=== PATIENT | female | born 1950 | race Caucasian/White ===

== ENCOUNTER → 2016-06-26 08:31 | Outpatient (CLI) | payer MEDICARE, OTHER ==
[2010-10-02 06:05] VITALS: BMI 27.5
== END | disposition home or self-care (01) ==
LOC: D.US 08:31
DX: R10.11 Right upper quadrant pain (principal); R16.0 Hepatomegaly, not elsewhere classified

== ENCOUNTER → 2016-07-17 17:06 | Outpatient (CLI) | payer MEDICARE, OTHER ==
[2010-10-02 06:05] VITALS: BMI 27.5
== END | disposition home or self-care (01) ==
LOC: D.MAMMO 15:45
DX: Z12.31 Encounter for screening mammogram for malignant neoplasm of breast (principal)

== ENCOUNTER → 2016-09-02 16:43 | Outpatient (CLI) | payer MEDICARE, OTHER ==
[2010-10-02 06:05] VITALS: BMI 27.5
== END | disposition home or self-care (01) ==
LOC: D.MAMMO 14:30
DX: R92.8 Other abnormal and inconclusive findings on diagnostic imaging of breast (principal)

== ENCOUNTER → 2016-09-20 16:55 | Outpatient (CLI) | payer MEDICARE, OTHER ==
[2010-10-02 06:05] VITALS: BMI 27.5
== END | disposition home or self-care (01) ==
LOC: D.MAMMO 09-13 13:00
DX: R92.1 Mammographic calcification found on diagnostic imaging of breast (principal)

== ENCOUNTER → 2017-09-30 05:40 | Outpatient (CLI) | payer MEDICARE, OTHER ==
[2010-10-02 06:05] VITALS: BMI 27.5
== END | disposition home or self-care (01) ==
LOC: D.MAMMO 09-29 10:00
DX: Z12.31 Encounter for screening mammogram for malignant neoplasm of breast (principal)

== ENCOUNTER 2017-12-24 06:00 | Day surgery (SDC) | payer MEDICARE, OTHER ==
[2017-12-23 15:59] LABS: HEMATOCRIT 41.5 % (36.0-48.0); HEMOGLOBIN 13.6 g/dL (12-16); MCH 29.8 pg (26.0-34.0); MCHC 32.8 g/dL (31.0-37.0); MCV 90.8 fL (80.0-100.0); MEAN PLATELET VOLUME 10.2 fL (7.4-10.4); RBC 4.57 10x6/uL (4.00-5.40); RDW 13.9 % (11.5-14.5); WBC 10.5 10x3/uL (4.8-10.8)
[2017-12-23 16:29] LABS: CALC OSMOLALITY 281 mosm/kg (275-300); CALCIUM 9.3 mg/dL (8.5-10.1); CARBON DIOXIDE 30.5 mmol/L (21.0-32.0); CHLORIDE - SERUM 102 mmol/L (98-107); CREATININE - SERUM 0.7 mg/dL (0.6-1.3); GLUCOSE 98 mg/dL (74-106); POTASSIUM - SERUM 4.1 mmol/L (3.5-5.1); SODIUM 142 mmol/L (136-145); UREA NITROGEN 10 mg/dL (7-18); eGFR NON AFRICAN AMERICAN 88 mL/min (90-120)
[~2017-12-24] VITALS: Ht 162.6 cm; Wt 79.8 kg
--- NOTE | ~2017-12-24 | OP ---
PATIENT NAME: CYNDI STAUFFER MEDICAL RECORD: [id number] :50 LOCATION:D.[facility] ADMISSION DATE: SURGEON: MARIKA VILLATORO DPM DATE OF OPERATION: 12/24/2017 PREOPERATIVE DIAGNOSES: 1. Painful hardware, left first metatarsophalangeal joint. 2. Malunion, left first metatarsophalangeal joint. POSTOPERATIVE DIAGNOSES: 1. Painful hardware, left first metatarsophalangeal joint. 2. Malunion, left first metatarsophalangeal joint. PROCEDURES: 1. Removal of hardware, left first MPJ. 2. Fusion of left first MPJ. ANESTHESIA: General with local infiltrate utilizing lidocaine and Marcaine plain, approximately 15 cc total around the first ray of the left foot. HEMOSTASIS: Left ankle tourniquet at 250 mmHg. PREOPERATIVE DETAILS: The patient was taken to the OR and placed on the operating table in a supine position followed by induction of general anesthesia and infiltration of local anesthetic. The left extremity was then prepped and draped in the usual aseptic technique followed by exsanguination of extremity and inflation of tourniquet. A 15 blade was used to create a 5 to 6 cm linear incision over the dorsal medial aspect of the left first metatarsal, down to the base of the proximal phalanx. The incision was deepened down through the subcutaneous tissue. The plate was visualized and removed from the surgical site. PROCEDURE #2: Fusion of left first MPJ. Utilizing the incision as described above, the malunion was resected with a bone saw. Proper placement of the first MPJ was achieved with a temporary fixation. A 5-hole plate with 1-hole crossing the fusion site was placed with excellent rigid internal fixation and verified with the C-arm. The wound was flushed. The capsule was repaired with 2-0 Vicryl, the subcutaneous tissue with 4-0 Rapide and the skin was closed with 4-0 Rapide in a subcuticular technique followed by Dermabond. Adaptic, 4 x 4 and Conform were used to dress the wound followed by application of a modified Xavier compression dressing. Tourniquet was deflated. POSTOPERATIVE DETAILS: The patient tolerated the procedure well and left the OR with vital signs stable and vascular status at preoperative levels. The patient was transferred to recovery per anesthesia in stable condition. 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
[~2017-12-24 06:00] MED LIST: GLIMEPIRIDE2 MG PO; GLUCOPHAGE500 MG PO; LIPITOR20 MG PO; LISINOPRIL10 MG PO; ULTRAM50 MG PO
[2017-12-24 07:27] VITALS: BP 126/87; Ht 162.6 cm; Wt 79.8 kg
== END 2017-12-24 11:15 | disposition home or self-care (01) ==
LOC: D.OPS 06:00 → D.PAN 08:15 → D.OPS 11:15
PROVIDERS: Anesthesiology
DX: T84.84XA Pain due to internal orthopedic prosthetic devices, implants and grafts, initial encounter (principal); S93.122A Dislocation of metatarsophalangeal joint of left great toe, initial encounter; X58.XXXA Exposure to other specified factors, initial encounter; Z01.812 Encounter for preprocedural laboratory examination

== ENCOUNTER 2018-06-01 11:06 | Day surgery (SDC) | payer MEDICARE, OTHER ==
[~2018-06-01] VITALS: Ht 162.6 cm; Wt 79.5 kg
[2018-06-01 11:41] LABS: BASOPHILS 0.4 % (0-2); EOSINOPHILS 0.8 % (0-7); HEMATOCRIT 42.4 % (36.0-48.0); HEMOGLOBIN 13.8 g/dL (12-16); IMMATURE GRANULOCYTES 0.1 % (0-5); LYMPHOCYTES 36.1 % (15-50); MCH 29.2 pg (26.0-34.0); MCHC 32.5 g/dL (31.0-37.0); MCV 89.6 fL (80.0-100.0); MEAN PLATELET VOLUME 10.2 fL (7.4-10.4); MONOCYTES 6.8 % (2-11); NEUTROPHILS 55.8 % (40-80); PLATELET COUNT 281 10x3/uL (130-400); RBC 4.73 10x6/uL (4.00-5.40); RDW 13.7 % (11.5-14.5); WBC 7.6 10x3/uL (4.8-10.8)
[2018-06-01 11:49] LABS: CALC OSMOLALITY 282 mosm/kg (275-300); CALCIUM 10.1 mg/dL (8.5-10.1); CARBON DIOXIDE 30.2 mmol/L (21.0-32.0); CHLORIDE - SERUM 101 mmol/L (98-107); CREATININE - SERUM 0.8 mg/dL (0.6-1.3); GLUCOSE 130 mg/dL (74-106); POTASSIUM - SERUM 4.1 mmol/L (3.5-5.1); SODIUM 142 mmol/L (136-145); UREA NITROGEN 8 mg/dL (7-18); eGFR NON AFRICAN AMERICAN 75 mL/min (90-120)
[2018-06-01 13:25] VITALS: BP 108/80; Ht 162.6 cm; Wt 79.5 kg
--- NOTE | 2018-06-01 13:29 | NUR ---
IV STARTED WITH 20G RIGHT HAND, TOLERATED WELL
--- NOTE | 2018-06-01 15:30 | NUR ---
1526 IV DC'D. CATHETER INTACT. BLEEDING AT SITE. PRESSURE HELD FOR 3 MINUTES. NO BLEEDING AT SITE. AREA WAS A LITTLE SWOLLEN AT CATHETER SITE BUT NOT RED OR INFLAMMED. BANDAID APPLIED.
--- NOTE | 2018-06-03 13:50 | OP ---
PATIENT NAME: CYNDI STAUFFER MEDICAL RECORD: [id number] :50 LOCATION:[facility] ADMISSION DATE: SURGEON: LILI CARTER DO DATE OF OPERATION: 06/01/2018 PROCEDURE: Colonoscopy with polypectomy. INDICATIONS FOR PROCEDURE: Stool DNA based colorectal cancer screening positive. SCOPE: The [employer] video pediatric colonoscope. MEDICATIONS: Propofol 450 mg IV per anesthesia. WITHDRAWAL TIME: 9 minutes. ESTIMATED BLOOD LOSS: Minimal. COMPLICATIONS: None. FINDINGS: Informed consent was given. The patient was made comfortable with the above medication. After reaching an adequate level of sedation by slow IV push, the patient was placed on her left side. A digital rectal examination was performed and was normal. The endoscope was then advanced under direct visualization through the rectum to the cecum, confirmed by the presence of the appendiceal orifice and ileocecal valve. The endoscope was slowly withdrawn and mucosa was carefully examined. The prep quality was good. There was evidence of moderate diverticulosis involving the descending and sigmoid colon as well as the cecum. There was no evidence of diverticulitis. There were 5 polyps visualized in total on today's examination. One was located in the transverse colon. It was benign appearing sessile polyp, which measured approximately 3 mm in diameter. It was removed using a hot forceps. In the descending colon, there was 1 polyp which was benign appearing and sessile. It measured approximately 4-5 mm in diameter and was removed using hot snare. In the sigmoid colon, there were 3 separate polyps, which were benign-appearing and sessile and ranged in size from 3-5 mm in diameter. Two were removed using a hot forceps and one was removed using a hot snare. Retroflexion was performed in the rectum with a normal appearing rectal wall. The endoscope was withdrawn from the patient. The patient tolerated the procedure well and there were no complications. IMPRESSION: 1. Mild to moderate diverticulosis of the descending and sigmoid colon as well as the cecum. 2. Multiple polyps as described above, removed using a combination of hot forceps and hot snare. 3. Otherwise, normal colonoscopy. PLAN AND RECOMMENDATIONS: 1. Discharge home when recovery parameters are met. 2. Follow up biopsy specimen results. 3. High fiber diet. 4. Continue current medications. 5. Recall colonoscopy in 3 years. 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
== END 2018-06-01 15:32 | disposition home or self-care (01) ==
LOC: D.OPS 11:06
PROVIDERS: Anesthesiology
DX: K57.30 Diverticulosis of large intestine without perforation or abscess without bleeding (principal); D12.4 Benign neoplasm of descending colon; K63.5 Polyp of colon; Z01.812 Encounter for preprocedural laboratory examination

== ENCOUNTER 2019-11-10 08:00 | Outpatient (CLI) | payer MEDICARE, OTHER ==
[2018-06-01 13:25] VITALS: BMI 30.1
== END 2019-11-10 23:59 | disposition home or self-care (01) ==
LOC: D.MAMMO 08:00
PROVIDERS: ATTEND Nurse Practitioner Family
DX: Z12.31 Encounter for screening mammogram for malignant neoplasm of breast (principal)

== ENCOUNTER → 2020-11-03 08:02 | Outpatient (CLI) | payer MEDICARE, OTHER ==
[2018-06-01 13:25] VITALS: BMI 30.1
[2020-11-03 08:43] LABS: CREATININE - SERUM 0.7 mg/dL (0.6-1.3)
== END | disposition home or self-care (01) ==
LOC: D.CT 08:02
PROVIDERS: ATTEND Nurse Practitioner
DX: I77.1 Stricture of artery (principal)